=== PATIENT | female | born 1990 | race Caucasian/White ===

== ENCOUNTER 2017-02-01 10:06 | Emergency (ER) | payer BC, MEDICAID ==
[~2017-02-01] VITALS: Ht 157.5 cm; Wt 49.9 kg
[~2017-02-01 10:06] MED LIST: AMPH15TA2 PO; GABA-534 PO
[2017-02-01] MEDS ORDERED: IV NORMAL SALINE 1000 ML BAG IV ONE (10:45)
[2017-02-01] MEDS ORDERED: KETOROLAC TROMETHAMINE 15 MG INJ IV ONE (10:45)
[2017-02-01] MEDS ORDERED: KETOROLAC TROMETHAMINE 30 MG INJ ONE (10:57)
[2017-02-01 11:08] LABS: *BILIRUBIN,URIN NEGATIVE (NEGATIVE); *BLOOD, URINE Trace-intact (NEGATIVE); *CLARITY,URINE CLEAR (CLEAR); *COLOR,URINE YELLOW (YELLOW); *KETONES,URINE NEGATIVE (NEGATIVE); *PROTEIN,URINE NEGATIVE (NEGATIVE); *UROBILINOGEN,URINE 0.2 E.U./dl (NORMAL); LEUKOCYTE ESTERASE ,URINE NEGATIVE (NEGATIVE); NITRITE, URINE NEGATIVE (NEGATIVE); UGLUCOSE NEGATIVE (NEGATIVE)
[2017-02-01 11:17] LABS: BACTERIA,URINE FEW /HPF (NONE SEEN); RBC,URINE 0-3 /HPF (0-3); SQUAMOUS EPITHELIAL CELL,UR NONE SEEN /HPF (NONE SEEN); WBC,URINE 0-3 /HPF (0-3)
[2017-02-01 11:21] LABS: BASOPHILS # (AUTO) 0.1 K/uL (0.0-0.2); EOSINOPHILS # (AUTO) 0.2 K/uL (0.0-0.7); EOSINOPHILS % (AUTO) 1.7 % (0.0-7.0); HEMATOCRIT 41.6 % (37.0-47.0); HEMOGLOBIN 14.4 g/dL (12.0-16.0); LYMPHOCYTES # (AUTO) 2.7 K/uL (0.8-4.8); LYMPHOCYTES % (AUTO) 24.6 % (20.5-51.5); MEAN CORPUSCULAR HEMOGLOBIN 32.4 uug (27.0-31.0); MEAN CORPUSCULAR HGB CONC 35 g/dL (32.0-37.0); MEAN CORPUSCULAR VOLUME 93.9 fL (81.0-99.0); MONOCYTES # (AUTO) 0.7 K/uL (0.1-1.30); MONOCYTES % (AUTO) 6.5 % (0.0-11.0); NEUTROPHILS # (AUTO) 7.4 K/uL (1.8-8.9); NEUTROPHILS % (AUTO) 66.2 % (38.5-71.5); PLATELET COUNT (AUTO) 346 K/uL (150-450); RED BLOOD CELL COUNT(AUTO) 4.43 MIL/uL (4.20-5.40); RED CELL DISTRIBUTION WIDTH 12.4 % (11.5-14.5); WHITE BLOOD COUNT (AUTO) 11.1 K/uL (4.0-11.2)
[2017-02-01 11:27] LABS: CALCIUM 8.7 mg/dL (8.5-10.1); CREATININE 0.9 mg/dL (0.6-1.3); POTASSIUM 3.3 mmol/L (3.5-5.1)
[2017-02-01 11:34] LABS: ALBUMIN 3.8 g/dL (3.4-5.0); BILIRUBIN,DIRECT 0.1 mg/dL (0.0-0.2); BILIRUBIN,TOTAL 0.3 mg/dL (0.2-1.0)
[2017-02-01] MEDS ORDERED: MORPHINE SULFATE 4 MG/1 ML DISP.SYRIN IV ONE (12:00)
[2017-02-01] MEDS ORDERED: ONDANSETRON IV *ER 4 MG/2 ML VIAL IV ONE (12:00)
[2017-02-01] MEDS ORDERED: PANTOPRAZOLE SODIUM IV 80 MG in IV DEXTROSE 5% 100 ML IV ONE (12:00)
[2017-02-01] MEDS ORDERED: ONDANSETRON 4 MG/2 ML VIAL ONE (12:12)
[2017-02-01] MEDS ORDERED: MORPHINE SULFATE 4 MG/1 ML DISP.SYRIN ONE (12:12)
[2017-02-01] MEDS ORDERED: PANTOPRAZOLE SODIUM 40 MG VIAL ONE (12:13)
--- NOTE | 2017-02-01 14:36 | NUR ---
Patient discharged to home in stable conditon. Written and verbal after care instructions given. Patient verbalizes understanding of instructions. Ambulated from Er with stable gait. All belongings with patient. Patient will be driven home by her in private vehicle.
[2017-02-01 14:38] VITALS: BP 130/75
== END 2017-02-01 14:40 | disposition home or self-care (01) ==
LOC: ER 10:06
DX: R10.10 Upper abdominal pain, unspecified (principal); G47.00 Insomnia, unspecified; F41.9 Anxiety disorder, unspecified; F31.9 Bipolar disorder, unspecified
CPT/HCPCS: 36415; 74176; 76700; 80048; 80076; 81001; 83690; 84484; 84703; 85025; 96361; 96374; 96375; 99285; A4663; C9113; J1885; J2270; J2405; J7030; 70030-TC

== ENCOUNTER 2017-06-20 14:32 | Emergency (ER) | payer BC, OTHER ==
[~2017-06-20] VITALS: Ht 157.5 cm; Wt 49.9 kg
[2017-06-20 15:12] LABS: BASOPHILS % (AUTO) 0.6 % (0.0-2.0); EOSINOPHILS # (AUTO) 0.1 K/uL (0.0-0.7); HEMATOCRIT 39.2 % (37-47); HEMOGLOBIN 13.4 G/DL (12.0-16.0); LYMPHOCYTES # (AUTO) 1.8 K/UL (0.8-4.8); LYMPHOCYTES % (AUTO) 24.6 % (20.5-51.5); MEAN CORPUSCULAR HEMOGLOBIN 32.1 UUG (27.0-31.0); MEAN CORPUSCULAR HGB CONC 34 g/dL (32.0-37.0); MEAN CORPUSCULAR VOLUME 93.8 FL (81.0-99.0); MONOCYTES # (AUTO) 0.4 K/UL (0.1-1.30); NEUTROPHILS # (AUTO) 5.1 K/UL (1.8-8.9); NEUTROPHILS % (AUTO) 67.8 % (38.5-71.5); PLATELET COUNT (AUTO) 344 K/UL (150-450); RED BLOOD CELL COUNT(AUTO) 4.18 MIL/UL (4.2-5.4); WHITE BLOOD COUNT (AUTO) 7.4 K/UL (4.0-11.2)
[2017-06-20 15:14] LABS: CREATININE 0.8 mg/dL (0.6-1.3); POTASSIUM 3.7 mmol/L (3.5-5.1)
[2017-06-20 15:20] LABS: BILIRUBIN,DIRECT 0.1 mg/dL (0.0-0.2); BILIRUBIN,TOTAL 0.5 mg/dL (0.2-1.0); TOTAL PROTEIN, SERUM 7.9 g/dL (6.4-8.2)
[2017-06-20] MEDS ORDERED: ONDANSETRON ODT 4 MG TAB.RAPDIS SL ONE (16:00)
[2017-06-20 16:01] LABS: *BLOOD, URINE NEGATIVE (NEGATIVE); *CLARITY,URINE SLIGHTLY CLOUDY (CLEAR); *COLOR,URINE YELLOW (YELLOW); *KETONES,URINE 3+ (NEGATIVE); *PROTEIN,URINE 1+ (NEGATIVE); *UROBILINOGEN,URINE 0.2 E.U./dl (NORMAL); LEUKOCYTE ESTERASE ,URINE NEGATIVE (NEGATIVE); NITRITE, URINE NEGATIVE (NEGATIVE); PH,URINE 7.5 (5.0-8.0); UGLUCOSE NEGATIVE (NEGATIVE)
[2017-06-20 16:05] LABS: *URINE HCG, QUAL NEGATIVE (NEGATIVE)
[2017-06-20] MEDS ORDERED: ONDANSETRON ODT 4 MG TAB.RAPDIS ONE (16:07)
[2017-06-20 16:09] LABS: *BILIRUBIN,URIN NEGATIVE (NEGATIVE)
--- NOTE | 2017-06-20 16:15 | NUR ---
Patient discharged to home in stable conditon. Written and verbal after care instructions given. Patient verbalizes understanding of instructions. Stressed follow up with pmd or return to ER for worsening s/s.
[2017-06-20 16:18] LABS: SQUAMOUS EPITHELIAL CELL,UR MANY /HPF (NONE SEEN); WBC,URINE 0-3 /HPF (0-3)
[2017-06-20 16:19] LABS: MUCUS,URINE MANY /LPF (0-FEW); URINE AMORPHOUS PHOSPHATES MODERATE /HPF
== END 2017-06-20 16:16 | disposition home or self-care (01) ==
LOC: ER 14:32
DX: K29.70 Gastritis, unspecified, without bleeding (principal); K21.9 Gastro-esophageal reflux disease without esophagitis
CPT/HCPCS: 36415; 83690; 84703; 85025; A4663; Q0162

== ENCOUNTER 2017-07-24 13:25 | Emergency (ER) | payer BC, MEDICAID ==
[~2017-07-24] VITALS: Ht 157.5 cm; Wt 49.9 kg
[2017-07-24 14:33] LABS: BASOPHILS # (AUTO) 0.3 K/uL (0.0-8.0); BASOPHILS % (AUTO) 2.2 % (0.0-2.0); EOSINOPHILS # (AUTO) 0.2 K/uL (0.0-0.7); EOSINOPHILS % (AUTO) 1.3 % (0.0-7.0); HEMATOCRIT 38.6 % (37-47); HEMOGLOBIN 12.8 G/DL (12.0-16.0); LYMPHOCYTES # (AUTO) 1.4 K/UL (0.8-4.8); LYMPHOCYTES % (AUTO) 11.3 % (20.5-51.5); MEAN CORPUSCULAR HEMOGLOBIN 31.1 UUG (27.0-31.0); MEAN CORPUSCULAR HGB CONC 33 g/dL (32.0-37.0); MEAN CORPUSCULAR VOLUME 94.1 FL (81.0-99.0); MONOCYTES # (AUTO) 0.6 K/UL (0.1-1.30); MONOCYTES % (AUTO) 5.3 % (0.0-11.0); NEUTROPHILS # (AUTO) 9.5 K/UL (1.8-8.9); NEUTROPHILS % (AUTO) 79.9 % (38.5-71.5); PLATELET COUNT (AUTO) 268 K/UL (150-450)
[2017-07-24 14:35] LABS: *BILIRUBIN,URIN NEGATIVE (NEGATIVE); *BLOOD, URINE 3+ (NEGATIVE); *CLARITY,URINE CLOUDY (CLEAR); *COLOR,URINE YELLOW (YELLOW); *KETONES,URINE 1+ (NEGATIVE); *UROBILINOGEN,URINE 0.2 E.U./dl (NORMAL); NITRITE, URINE POSITIVE (NEGATIVE); UGLUCOSE NEGATIVE (NEGATIVE)
[2017-07-24 14:36] LABS: CREATININE 1.2 mg/dL (0.6-1.3); POTASSIUM 3.7 mmol/L (3.5-5.1)
[2017-07-24 14:38] LABS: *URINE HCG, QUAL NEGATIVE (NEGATIVE)
[2017-07-24 14:41] LABS: BILIRUBIN,TOTAL 0.4 mg/dL (0.2-1.0); TOTAL PROTEIN, SERUM 7.4 g/dL (6.4-8.2)
[2017-07-24 14:50] LABS: *PROTEIN,URINE 3+ (NEGATIVE); LEUKOCYTE ESTERASE ,URINE 2+ (NEGATIVE)
[2017-07-24 14:52] LABS: BACTERIA,URINE MANY /HPF (NONE SEEN); MUCUS,URINE MANY /LPF (0-FEW); SQUAMOUS EPITHELIAL CELL,UR MANY /HPF (NONE SEEN); WBC,URINE 80-100 /HPF (0-3)
[2017-07-24 14:55] LABS: BAND % (MANUAL) 3 % (0-10); LYMPHOCYTES % (MANUAL) 9 % (20-40); MONOCYTES % (MANUAL) 4 % (2-10); NEUTROPHILS % (MANUAL) 84 % (42-75)
[2017-07-24] MEDS ORDERED: PHENAZOPYRIDINE HCL 100 MG TABLET PO ONE (15:15)
[2017-07-24] MEDS ORDERED: HYDROCODONE/APAP 5-325MG TABLET PO ONE ×2 (15:15→17:00)
[2017-07-24] MEDS ORDERED: CEFTRIAXONE 1 G in IV DEXTROSE 5% 50 ML IV ONE (15:15)
[2017-07-24] MEDS ORDERED: IV NS 1000 ML 1,000 ML IV ONE (15:15)
[2017-07-24] MEDS ORDERED: PHENAZOPYRIDINE HCL 100 MG TABLET ONE (15:24)
[2017-07-24] MEDS ORDERED: CEFTRIAXONE 1 G VIAL ONE (15:24)
[2017-07-24] MEDS ORDERED: HYDROCODONE/APAP 5-325MG TABLET ONE ×2 (15:35→16:56)
--- NOTE | 2017-07-24 15:50 | NUR ---
Pt back from xray, states no pain relief from [place]. Dr Christine notified.
--- NOTE | 2017-07-24 16:30 | NUR ---
IV removed. Catheter intact and site benign. Pressure and 4x4 gauze applied to site. No bleeding noted.
--- NOTE | 2017-07-24 16:35 | NUR ---
Patient discharged to home in stable conditon. Written and verbal after care instructions given. Patient verbalizes understanding of instructions. Stressed follow up or return to ER for worsening s/s.
[2017-07-24 16:37] VITALS: BP 110/67
--- NOTE | 2017-07-24 16:42 | NUR ---
Pt went to restroom after ACI was given, after coming out of the restroom pt stated she wanted more pain medication before she went home. Dr. Christine was notified and pt was medicated with [place] 5-325mg 1 tab po as ordered.
== END 2017-07-24 16:38 | disposition home or self-care (01) ==
LOC: ER 13:27
DX: N39.0 Urinary tract infection, site not specified (principal); D72.829 Elevated white blood cell count, unspecified; K21.9 Gastro-esophageal reflux disease without esophagitis; F41.9 Anxiety disorder, unspecified; F31.9 Bipolar disorder, unspecified
CPT/HCPCS: 36415; 84703; 85025; A4663; J0696; J3490; J7030

== ENCOUNTER 2018-02-02 11:10 | Inpatient (IN) | payer BC ==
[2018-02-02] VITALS (8 sets, daily range): BP systolic 91–136; BP diastolic 53–82
[~2018-02-02] VITALS: Ht 157.5 cm; Wt 60.3 kg
--- NOTE | 2018-02-02 11:18 | NUR ---
PT BIB RA 88 FROM HOME S/P INTENTIALL OVER DOSE OFPOSSIBLY 20 EFFEXOR PILLS AT 9PM LAST NIGHT. PT AWAKE, AXOX4 BUT LETHARGIC AT THIS POINT.
[2018-02-02] MEDS ORDERED: VENL150C2 PO (11:27)
[2018-02-02] MEDS ORDERED: IV NORMAL SALINE 1000 ML BAG IV ONE (11:45)
[2018-02-02] MEDS ORDERED: LORAZEPAM 2 MG/1 ML VIAL ONE ×2 (11:48→12:26)
--- NOTE | 2018-02-02 11:49 | NUR ---
AT BEDSIDE TRYING TO START ANOTHER HEPLOCK FOR THE PT, WHEN THE PT STARTED SEIZING, GRAND MAL, SEIZURE PROTECTION PROVIDED. NOTIFIED.
--- NOTE | 2018-02-02 11:57 | NUR ---
PT AT BEDSIDE RIGHT NOW. PT SAID THAT THE PT SEIZED EARLEER IN THE MORNING AND THATS WHEN THE HUSBANDCALLED PARAMEDICS.
[2018-02-02 12:00] LABS: BASOPHILS # (AUTO) 0.1 K/uL (0.0-8.0); BASOPHILS % (AUTO) 0.7 % (0.0-2.0); EOSINOPHILS # (AUTO) 0.4 K/uL (0.0-0.7); EOSINOPHILS % (AUTO) 2.8 % (0.0-7.0); HEMATOCRIT 39.4 % (31.2-41.9); HEMOGLOBIN 12.6 g/dL (10.9-14.3); LYMPHOCYTES # (AUTO) 4.6 K/uL (20.0-40.0); LYMPHOCYTES % (AUTO) 29.5 % (20.5-51.5); MEAN CORPUSCULAR HEMOGLOBIN 31.9 uug (24.7-32.8); MEAN CORPUSCULAR HGB CONC 32 g/dL (32.3-35.6); MEAN CORPUSCULAR VOLUME 99.4 fL (75.5-95.3); MONOCYTES # (AUTO) 1.4 K/uL (2.0-10.0); MONOCYTES % (AUTO) 8.6 % (0.0-11.0); NEUTROPHILS # (AUTO) 9.1 K/uL (1.8-8.9); NEUTROPHILS % (AUTO) 58.4 % (38.5-71.5); PLATELET COUNT (AUTO) 307 K/uL (179-408); RED BLOOD CELL COUNT(AUTO) 3.96 MIL/uL (3.63-4.92); WHITE BLOOD COUNT (AUTO) 15.6 K/uL (3.8-11.8)
[2018-02-02] MEDS ORDERED: LORAZEPAM 2 MG/1 ML VIAL IV ONE ×2 (12:00→12:30)
[2018-02-02 12:05] LABS: CARBON DIOXIDE 20 mmol/L (21-32); CHLORIDE 107 mmol/L (98-107); CREATININE 0.9 mg/dL (0.6-1.3); GLUCOSE 87 mg/dL (74-106); POTASSIUM 3.3 mmol/L (3.5-5.1); UREA NITROGEN, BLOOD 6 mg/dL (7-18)
[2018-02-02 12:13] LABS: ACETAMINOPHEN < 2.0 ug/mL (10-30); ALANINE AMINOTRANSFERASE 20 U/L (14-59); ALKALINE PHOSPHATASE 58 U/L (50-136); ASPARTATE AMINOTRANSFERASE 17 U/L (15-37); BILIRUBIN,DIRECT < 0.1 mg/dL (0.0-0.2); BILIRUBIN,TOTAL 0.1 mg/dL (0.2-1.0); TOTAL PROTEIN, SERUM 7.1 g/dL (6.4-8.2)
[2018-02-02 12:14] LABS: ETHANOL < 3 MG/DL (0-0)
--- NOTE | 2018-02-02 12:41 | NUR ---
PT PLACED ON BEDPAN PER REQUEST.
--- NOTE | 2018-02-02 13:00 | NUR ---
SBAR report received from [facility].
[2018-02-02] MEDS ORDERED: MAGNESIUM SULFATE/D5W 100 ML IV SCH ×2 (13:15→15:00)
[2018-02-02] MEDS ORDERED: POTASSIUM CHLORIDE 20 MEQ TAB.PRT.SR PO ONE (13:15)
--- NOTE | 2018-02-02 13:18 | NUR ---
PT UNABLE TO VOID ON BEDPAN, PT SAYS THAT SHE HAS DIFFICULTY VOIDING AND HAS BEEN CHECKED MULTIPLE TIMES AND NO DIAGNOSIS WAS FOUND. PT REQUESTING TO SIT ON NEXT TO BED COMMODE.
[2018-02-02] MEDS ORDERED: MAGNESIUM SULFATE/D5W 100 ML ONE (13:34)
[2018-02-02] MEDS ORDERED: POTASSIUM CHLORIDE 20 MEQ TAB.PRT.SR ONE (13:34)
--- NOTE | 2018-02-02 13:40 | NUR ---
PT VOIDED 60 ML AND SENT TO LAB
[2018-02-02 13:51] LABS: *BILIRUBIN,URIN NEGATIVE (NEGATIVE); *BLOOD, URINE 1+ (NEGATIVE); *COLOR,URINE YELLOW (YELLOW); *KETONES,URINE NEGATIVE (NEGATIVE); *PROTEIN,URINE NEGATIVE (NEGATIVE); *URINE HCG, QUAL NEGATIVE (NEGATIVE); *UROBILINOGEN,URINE 0.2 E.U./dl (NORMAL); LEUKOCYTE ESTERASE ,URINE NEGATIVE (NEGATIVE); NITRITE, URINE NEGATIVE (NEGATIVE); PH,URINE 5.5 (5.0-8.0); UGLUCOSE NEGATIVE (NEGATIVE)
[2018-02-02 13:52] LABS: *CLARITY,URINE SLIGHTLY CLOUDY (CLEAR)
--- NOTE | 2018-02-02 13:52 | NUR ---
PT TRANSFERED TO FLOOR IN STABLE CONDITION. NO CHNGE IN PT MENTATION. PT AND SISTER AT BEDSIDE.
[2018-02-02 13:59] LABS: BACTERIA,URINE MODERATE /HPF (NONE SEEN); SQUAMOUS EPITHELIAL CELL,UR MANY /HPF (NONE SEEN); WBC,URINE 0-3 /HPF (0-3)
--- NOTE | 2018-02-02 14:00 | NUR ---
admitted to CCU 3 , 27 yr old female diagnosis of drug overdose, tachycardia, seizures. patient is lethargis but arousable. denies pain and discomfort,is tachycardic up to 130/min. tamp 98.2. call to dr morales for adm orders. condition report given to MD as well Addendum: 02/02/18 at 1444 by BARBARA KUMAR RN Amended: Links added.
[2018-02-02 14:03] LABS: *AMPHETAMINE, URINE POSITIVE (NEGATIVE); *BARBITURATE, URINE NEGATIVE (NEGATIVE); *CANNABINOID, URINE NEGATIVE (NEGATIVE); *COCCAINE, URINE NEGATIVE (NEGATIVE); *OPIATE, URINE NEGATIVE (NEGATIVE); *PHENCYCLIDINE SCREEN,URINE POSITIVE (NEGATIVE)
[2018-02-02] MEDS ORDERED: ACETAMINOPHEN 325 MG TABLET PO PRN (14:45)
[2018-02-02] MEDS ORDERED: MAGNESIUM HYDROXIDE 30 ML LIQUID UDC PO PRN (14:45)
[2018-02-02] MEDS ORDERED: LORAZEPAM 2 MG/1 ML VIAL IV PRN (14:45)
[2018-02-02] MEDS: POTASSIUM CHLORIDE 20 MEQ in IV NS 1000 ML 1,000 ML IV PRN (16:02)
[2018-02-02] MEDS: GABAPENTIN 300 MG CAPSULE PO SCH ×2 (17:00→17:31)
--- NOTE | 2018-02-02 17:30 | NUR ---
patient asked for zofran, call to dr morales. prefers to give ativan instead of zofran. ativan given instead. dinner served. ate 50%. has urgency ang frequency of urination. dr morales made aware. Addendum: 02/02/18 at 1856 by BARBARA KUMAR RN Amended: Links added.
[2018-02-02] MEDS: LORAZEPAM 2 MG/1 ML VIAL IV PRN ×2 (17:32→22:29)
--- NOTE | 2018-02-02 19:15 | NUR ---
report given to Marita Addendum: 02/02/18 at 1947 by BARBARA KUMAR RN Amended: Links added.
--- NOTE | 2018-02-02 20:00 | NUR ---
Dr Tran at bedside for eval and assessment. Updates given
[2018-02-02] MEDS: DOCUSATE SODIUM 100 MG CAPSULE PO SCH (21:43)
--- NOTE | 2018-02-02 22:30 | NUR ---
1 episode of emesis. Spoke with Dr Tran regarding patient's nausea. No new orders at this time.
[2018-02-03] VITALS (24 sets, daily range): BP systolic 96–128; BP diastolic 66–90
--- NOTE | 2018-02-03 02:00 | NUR ---
Patient requested to use diaper during night while asleep. Continue to monitor.
[2018-02-03] MEDS: LORAZEPAM 2 MG/1 ML VIAL IV PRN ×4 (05:03→22:39)
[2018-02-03 05:29] LABS: BASOPHILS % (AUTO) 0.3 % (0.0-2.0); EOSINOPHILS # (AUTO) 0.2 K/uL (0.0-0.7); EOSINOPHILS % (AUTO) 1.2 % (0.0-7.0); HEMATOCRIT 35.2 % (31.2-41.9); LYMPHOCYTES % (AUTO) 15.4 % (20.5-51.5); MEAN CORPUSCULAR HEMOGLOBIN 32.3 uug (24.7-32.8); MEAN CORPUSCULAR HGB CONC 34 g/dL (32.3-35.6); MEAN CORPUSCULAR VOLUME 94.9 fL (75.5-95.3); MONOCYTES # (AUTO) 0.9 K/uL (2.0-10.0); MONOCYTES % (AUTO) 6.7 % (0.0-11.0); NEUTROPHILS % (AUTO) 76.4 % (38.5-71.5); PLATELET COUNT (AUTO) 270 K/uL (179-408); WHITE BLOOD COUNT (AUTO) 13.1 K/uL (3.8-11.8)
[2018-02-03 05:43] LABS: BILIRUBIN,TOTAL 0.3 mg/dL (0.2-1.0); CREATININE 0.7 mg/dL (0.6-1.3); PHOSPHOROUS 2.4 mg/dL (2.5-4.9); POTASSIUM 3.3 mmol/L (3.5-5.1); TOTAL PROTEIN, SERUM 6.9 g/dL (6.4-8.2)
[2018-02-03 05:54] LABS: THYROID STIMULATING HORMONE 1.883 mIU/mL (0.358-3.740)
--- NOTE | 2018-02-03 06:00 | NUR ---
Patient refusing AM care at this time. Will defer, endorse to day shift.
[2018-02-03] MEDS: PANTOPRAZOLE SODIUM 40 MG TABLET.DR PO SCH (06:37)
--- NOTE | 2018-02-03 06:50 | NUR ---
Patient remained stable throughout night. No seizure activity noted. Sinus tach on monitor. HR at start of shift 120s now stabilizing at 105. Titrated off O2 supplementation, now room air with SpO2 and RR WNL. Complained of nausea with 1 episode of vomiting, now ceased. Good urine output through shift. Peripheral IV to R hand remains intact with IVF running as ordered. SBAR report to be given to Kiah Cooper RN
--- NOTE | 2018-02-03 07:10 | NUR ---
report received from [facility], 27 yr old female andria was admitted on 02/02/18 for drug overdose, tachycardia and seizures. patient seizure free since admission, remains tachycardic HR 110/min. patient alet and verbally communicative. is voiding frequently at small amounts. has diaper on, moves all exteremities. remains on bed rest. Addendum: 02/03/18 at 0739 by BARBARA KUMAR RN Amended: Links added.
[2018-02-03] MEDS: GABAPENTIN 300 MG CAPSULE PO SCH ×3 (09:00→17:00)
--- NOTE | 2018-02-03 09:00 | NUR ---
patient changed own diaper times 1, noticed IV left hand dislodged. IV #22 inserted via left wrist. Addendum: 02/03/18 at 0917 by BARBARA KUMAR RN Amended: Links added.
--- NOTE | 2018-02-03 10:32 | NUR ---
medicated with ativan for anxiety Addendum: 02/03/18 at 1032 by BARBARA KUMAR RN Amended: Links added.
[2018-02-03] MEDS: POTASSIUM CHLORIDE 20 MEQ in IV NS 1000 ML 1,000 ML IV PRN (12:45)
--- NOTE | 2018-02-03 14:33 | NUR ---
more anxious, verbalized need to get out of here. remains unaware of recent events. asking for family members.also asking for medication to knock her out.reoriented asmuch as possible. gets oob to use commode. voiding well.. remains unsteady on her feet. medicated with ativan Addendum: 02/03/18 at 1433 by ABRBARA KUMAR RN Amended: Links added.
[2018-02-03] MEDS ORDERED: POTASSIUM CHLORIDE 20 MEQ TAB.PRT.SR PO ONE (15:15)
[2018-02-03] MEDS ORDERED: NEUTRA PHOS PACKET PO ONE (15:45)
[2018-02-03] MEDS: DOCUSATE SODIUM 100 MG CAPSULE PO SCH ×2 (21:00→21:02)
[2018-02-04] VITALS (16 sets, daily range): BP systolic 105–140; BP diastolic 34–81
[2018-02-04] MEDS: POTASSIUM CHLORIDE 20 MEQ in IV NS 1000 ML 1,000 ML IV PRN (01:30)
[2018-02-04 04:49] LABS: BASOPHILS # (AUTO) 0.1 K/uL (0.0-8.0); BASOPHILS % (AUTO) 0.4 % (0.0-2.0); EOSINOPHILS # (AUTO) 0.4 K/uL (0.0-0.7); EOSINOPHILS % (AUTO) 2.8 % (0.0-7.0); HEMATOCRIT 36.5 % (31.2-41.9); HEMOGLOBIN 12.3 g/dL (10.9-14.3); LYMPHOCYTES # (AUTO) 2.4 K/uL (20.0-40.0); LYMPHOCYTES % (AUTO) 18.2 % (20.5-51.5); MEAN CORPUSCULAR HEMOGLOBIN 32.3 uug (24.7-32.8); MEAN CORPUSCULAR HGB CONC 34 g/dL (32.3-35.6); MEAN CORPUSCULAR VOLUME 95.3 fL (75.5-95.3); MONOCYTES # (AUTO) 0.9 K/uL (2.0-10.0); MONOCYTES % (AUTO) 7.1 % (0.0-11.0); NEUTROPHILS # (AUTO) 9.5 K/uL (1.8-8.9); NEUTROPHILS % (AUTO) 71.5 % (38.5-71.5); PLATELET COUNT (AUTO) 270 K/uL (179-408); RED BLOOD CELL COUNT(AUTO) 3.83 MIL/uL (3.63-4.92); WHITE BLOOD COUNT (AUTO) 13.3 K/uL (3.8-11.8)
[2018-02-04 05:26] LABS: BILIRUBIN,TOTAL 0.3 mg/dL (0.2-1.0); CREATININE 0.7 mg/dL (0.6-1.3); MAGNESIUM 1.9 mg/dL (1.8-2.4); PHOSPHOROUS 2.8 mg/dL (2.5-4.9); POTASSIUM 4.3 mmol/L (3.5-5.1); TOTAL PROTEIN, SERUM 6.9 g/dL (6.4-8.2)
--- NOTE | 2018-02-04 06:00 | NUR ---
Patient refusing IVF at this time. Education provided of risks/benefits, patient continues to refuse.
[2018-02-04] MEDS: PANTOPRAZOLE SODIUM 40 MG TABLET.DR PO SCH (06:23)
[2018-02-04] MEDS: LORAZEPAM 2 MG/1 ML VIAL IV PRN (06:25)
--- NOTE | 2018-02-04 06:57 | NUR ---
No significant events overnight. Patient remained stable throughout shift. Anxiety noted, PRN medications admin as ordered. Handoff report given to Nicole Fierro RN
[2018-02-04] MEDS: GABAPENTIN 300 MG CAPSULE PO SCH ×2 (08:32→14:00)
--- NOTE | 2018-02-04 09:00 | NUR ---
AMBULATED BY PT AROUND THE CCU HALLWAY, TOLERATED WELL.
--- NOTE | 2018-02-04 10:00 | NUR ---
SPOKEN WITH CASE MANAGEMENT AND ORE CRUSHER AND DISCUSS THE CONCERN.
--- NOTE | 2018-02-04 10:30 | NUR ---
SEEN AND EXAMINED BY DR NYDIA GALAN MD AND RECOMMEND TO CALL FOR A HEALTH CRISIS TEAM. CALLED AND NOTIFIED BENNIE AND WILL BE COMING BY 2PM.
--- NOTE | 2018-02-04 13:00 | NUR ---
SEEN AND EXAMINED BY [facility]. NO ORDEREDS MADE,
--- NOTE | 2018-02-04 14:00 | NUR ---
SEEN AND EXAMINED BY BENNIE, CRISIS TEAM, SAT DOWN AND TALK WITH THE PATIENT.
--- NOTE | 2018-02-04 14:30 | NUR ---
PT WROTE A NOTE THAT SHE DISCHARGE HERSELF VOLUNTARILY FROM BEING ADMITTED IN THE PSYCHE UNIT. BENNIE FROM CRISIS TEAM OKEYED THAT PT CAN GO HOME WHEN SHE IS MEDICALLY CLEAR.
--- NOTE | 2018-02-04 15:30 | NUR ---
PT WANTED TO REALLY GO HOME. NOTIFIED DR HUERTA OF PT'S INTENT TO GO HOME AND ALSO INFORMED THAT PT WAS SEEN BY DR SHENG MONDRAGON PYSCIATRIST AND THE CRISIS TEAM BENNIE.
--- NOTE | 2018-02-04 16:20 | NUR ---
PT IS BEING MEDICALLY CLEAR AND DISCHARGE ORDERED.
--- NOTE | 2018-02-04 16:45 | NUR ---
SEEN AND EXAMINED BY DR HUERTA BEFORE DISCHARGE.
--- NOTE | 2018-02-04 16:47 | NUR ---
NOTIFIED PT'S MEGAN, OF PT'S DISCHARGE. AND NOTIFIED PT'S SISTER.
--- NOTE | 2018-02-04 18:02 | NUR ---
SISTER IS IN. DISCHARGE INSTRUCTIONS GIVEN TO PT AND SISTER WITH GOOD UNDERSTANDING. IV LINE REMOVED. DISCHARGED AMBULATORY ACCOMPANIED BY HER SISTER. PT PREFERRED TO AMBULATE THAN RIDING ON WHEELCHAIR. CONDITION IS STABLE.
== END 2018-02-04 19:16 | disposition home or self-care (01) | DRG 812 ==
LOC: ER 11:10 → CCU 13:43
PROVIDERS: ADMIT Internal Medicine; ATTEND Internal Medicine
DX: T43.212A Poisoning by selective serotonin and norepinephrine reuptake inhibitors, intentional self-harm, initial encounter (principal); M62.82 Rhabdomyolysis; R56.9 Unspecified convulsions; F31.4 Bipolar disorder, current episode depressed, severe, without psychotic features; Y92.002 Bathroom of unspecified non-institutional (private) residence as the place of occurrence of the external cause; F16.10 Hallucinogen abuse, uncomplicated; F60.3 Borderline personality disorder; K21.9 Gastro-esophageal reflux disease without esophagitis; I45.10 Unspecified right bundle-branch block; F41.9 Anxiety disorder, unspecified; E87.6 Hypokalemia; D72.828 Other elevated white blood cell count; Z87.440 Personal history of urinary (tract) infections; Z79.899 Other long term (current) drug therapy
CPT/HCPCS: 36415; 71045; 80307; 83735; 84100; 84443; 84703; 85025; 87086; 93005; 97116; 97530; A4663; G0480; G0480-TC; J2060; J3475; J3480; J3490; J7030

== ENCOUNTER 2018-05-26 22:21 | Emergency (ER) | payer BC ==
[~2018-05-26] VITALS: Ht 157.5 cm; Wt 49.9 kg
[~2018-05-26 22:21] MED LIST changes: +VENL150C2 PO
--- NOTE | 2018-05-26 23:07 | NUR ---
DR SUNDAY BARFIELD MD AT BEDSIDE FOR MSE.
[2018-05-26] MEDS ORDERED: TRAMADOL HCL 50 MG TABLET PO ONE (23:15)
[2018-05-26] MEDS ORDERED: TRAMADOL HCL 50 MG TABLET ONE (23:17)
--- NOTE | 2018-05-26 23:20 | NUR ---
CALLED RADIOLOGY FOR XRAY. CONSENT OBTAINED.
--- NOTE | 2018-05-26 23:26 | NUR ---
PT TAKEN VIA WHEELCHAIR TO RADIOLOGY FOR CT. NO DISTRESS NOTED.
--- NOTE | 2018-05-26 23:38 | NUR ---
PT WALKED BACK FROM RADIOLOGY W/ MANAGEMENT TRAINER. NO ACUTE EVENTS.
--- NOTE | 2018-05-26 23:47 | NUR ---
PT PROVIDED BLANKET. PT RESTING COMFORTABLY IN BED.
[2018-05-27] MEDS ORDERED: ONDANSETRON ODT 4 MG TAB.RAPDIS SL ONE (01:00)
[2018-05-27] MEDS ORDERED: ONDANSETRON ODT 4 MG TAB.RAPDIS ONE (01:29)
--- NOTE | 2018-05-27 01:51 | NUR ---
Patient discharged to home in stable conditon. Written and verbal after care instructions given. Patient verbalizes understanding of instructions. Pt ambulated from ER w/ steady gait. Pt took all personal belongings. No distress noted.
[2018-05-27 01:52] VITALS: BP 111/86
== END 2018-05-27 01:53 | disposition home or self-care (01) ==
LOC: ER 22:23
DX: S16.1XXA Strain of muscle, fascia and tendon at neck level, initial encounter (principal); Z79.899 Other long term (current) drug therapy; X58.XXXA Exposure to other specified factors, initial encounter; Y93.89 Activity, other specified; Y92.89 Other specified places as the place of occurrence of the external cause; Y99.8 Other external cause status
CPT/HCPCS: 72050; A4663; Q0162

== ENCOUNTER 2019-03-20 23:48 | Emergency (ER) | payer BC, OTHER ==
[~2019-03-20] VITALS: Ht 157.5 cm; Wt 49.9 kg
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
[2019-03-21] MEDS ORDERED: ONDANSETRON ODT 4 MG TAB.RAPDIS SL ONE (00:30)
[2019-03-21] MEDS ORDERED: ONDANSETRON ODT 4 MG TAB.RAPDIS ONE (00:33)
--- NOTE | 2019-03-21 00:55 | NUR ---
Pt. taken off unit via wheelchair by Rad. tech. for CT head,
--- NOTE | 2019-03-21 01:07 | NUR ---
Pt. back from CT, NAD
[2019-03-21] MEDS ORDERED: HYDROCODONE/APAP 10-325 MG TABLET PO ONE (01:30)
[2019-03-21] MEDS ORDERED: HYDROCODONE/APAP 10-325 MG TABLET ONE (01:35)
--- NOTE | 2019-03-21 01:49 | NUR ---
Patient discharged to home in stable conditon. Written and verbal after care instructions given. Patient verbalizes understanding of instructions. Pt. d/c per MD order, d/c papers signed, all belongings w/ pt., ID band removed, ambulated off unit w/ steady gait, instructed not to drive, NAD
== END 2019-03-21 01:54 | disposition home or self-care (01) ==
LOC: ER 23:51
DX: S06.0X0A Concussion without loss of consciousness, initial encounter (principal); Z79.899 Other long term (current) drug therapy; Y09 Assault by unspecified means
CPT/HCPCS: 70450; 72125; A4663; Q0162

== ENCOUNTER 2019-06-21 20:59 | Emergency (ER) | payer SELFPAY ==
--- NOTE | 2019-06-21 22:00 | NUR ---
PATIENT WAS CALLED TO BE PLACED IN ROOM. WAS NOT PRESENT
--- NOTE | 2019-06-21 22:50 | NUR ---
PATIENT WAS CALLED 2ND TIME TO BE PLACED IN ROOM TO BE EVAL BY ERMD. PATIENT WAS NOT AVAILABLE
--- NOTE | 2019-06-21 23:28 | NUR ---
PATIENT WAS CALLED FOR 3RD TIME TO BE PLACED IN ROOM.PATIENT WAS NOT PRESENT. PATIENT WAS NOT TRIAGED OR SEEN BY ERMD
== END 2019-06-21 23:29 | disposition left against medical advice (07) ==
LOC: ER 21:01
DX: Z53.21 Procedure and treatment not carried out due to patient leaving prior to being seen by health care provider (principal)

== ENCOUNTER 2019-06-23 07:08 | Emergency (ER) | payer MEDICAID ==
[~2019-06-23] VITALS: Ht 157.5 cm; Wt 47.6 kg
[2019-06-23] MEDS ORDERED: DIAZ10TA4 PO (07:20)
--- NOTE | 2019-06-23 07:45 | NUR ---
LICO MONDRAGON AT BEDSIDE FOR MSE.
[2019-06-23 08:01] LABS: *BILIRUBIN,URIN NEGATIVE (NEGATIVE); *BLOOD, URINE 2+ (NEGATIVE); *CLARITY,URINE CLEAR (CLEAR); *COLOR,URINE LIGHT YELLOW (YELLOW); *KETONES,URINE NEGATIVE (NEGATIVE); *URINE HCG, QUAL NEGATIVE (NEGATIVE); *UROBILINOGEN,URINE 0.2 E.U./dl (NORMAL); LEUKOCYTE ESTERASE ,URINE NEGATIVE (NEGATIVE); NITRITE, URINE NEGATIVE (NEGATIVE); PH,URINE 5.5 (5.0-8.0); UGLUCOSE NEGATIVE (NEGATIVE)
[2019-06-23 08:07] LABS: SQUAMOUS EPITHELIAL CELL,UR FEW /HPF (NONE SEEN)
[2019-06-23 08:08] LABS: BACTERIA,URINE NONE SEEN /HPF (NONE SEEN); WBC,URINE 0-3 /HPF (0-3)
[2019-06-23 08:09] LABS: RBC,URINE 0-3 /HPF (0-3)
[2019-06-23 08:09] LABS: BASOPHILS % (AUTO) 0.5 % (0.0-2.0); EOSINOPHILS # (AUTO) 0.1 K/uL (0.0-0.7); EOSINOPHILS % (AUTO) 1.4 % (0.0-7.0); HEMATOCRIT 41.5 % (31.2-41.9); HEMOGLOBIN 14.3 g/dL (10.9-14.3); LYMPHOCYTES % (AUTO) 36.8 % (20.5-51.5); MEAN CORPUSCULAR HEMOGLOBIN 32.7 uug (24.7-32.8); MEAN CORPUSCULAR HGB CONC 35 g/dL (32.3-35.6); MEAN CORPUSCULAR VOLUME 94.8 fL (75.5-95.3); MONOCYTES # (AUTO) 0.5 K/uL (2.0-10.0); MONOCYTES % (AUTO) 6.2 % (0.0-11.0); NEUTROPHILS # (AUTO) 4.4 K/uL (1.8-8.9); NEUTROPHILS % (AUTO) 55.1 % (38.5-71.5); PLATELET COUNT (AUTO) 296 K/uL (179-408); RED BLOOD CELL COUNT(AUTO) 4.38 MIL/uL (3.63-4.92)
[2019-06-23 08:11] LABS: *AMPHETAMINE, URINE NEGATIVE (NEGATIVE); *BARBITURATE, URINE NEGATIVE (NEGATIVE); *CANNABINOID, URINE NEGATIVE (NEGATIVE); *COCCAINE, URINE NEGATIVE (NEGATIVE); *OPIATE, URINE NEGATIVE (NEGATIVE); *PHENCYCLIDINE SCREEN,URINE NEGATIVE (NEGATIVE)
[2019-06-23 08:15] LABS: CARBON DIOXIDE 28 mmol/L (21-32); CHLORIDE 104 mmol/L (98-107); CREATININE 0.9 mg/dL (0.6-1.3); GLUCOSE 92 mg/dL (74-106); POTASSIUM 3.8 mmol/L (3.5-5.1); UREA NITROGEN, BLOOD 6 mg/dL (7-18)
[2019-06-23 08:22] LABS: ETHANOL < 3 MG/DL (0-0)
[2019-06-23 08:28] LABS: ALANINE AMINOTRANSFERASE 36 U/L (14-59); ALKALINE PHOSPHATASE 73 U/L (50-136); ASPARTATE AMINOTRANSFERASE 26 U/L (15-37); BILIRUBIN,DIRECT 0.1 mg/dL (0.0-0.2); BILIRUBIN,TOTAL 0.3 mg/dL (0.2-1.0); TOTAL PROTEIN, SERUM 7.6 g/dL (6.4-8.2)
--- NOTE | 2019-06-23 08:34 | NUR ---
BENNIE LADD, CRISIS EMERGING TECHNOLOGIES DIRECTOR, CALLED FOR PSYCH EVAL. ETA 1 HOUR.
[2019-06-23 08:35] LABS: ACETAMINOPHEN < 2.0 ug/mL (10-30)
[2019-06-23] MEDS ORDERED: HYDROCODONE/APAP 5-325MG TABLET ONE (08:41)
[2019-06-23] MEDS ORDERED: HYDROCODONE/APAP 5-325MG TABLET PO ONE (08:45)
--- NOTE | 2019-06-23 09:50 | NUR ---
BENNIE LADD, CRISIS WOMEN'S SWIM COACH, IN ER FOR PT EVAL.
[2019-06-23] MEDS ORDERED: SUMATRIPTAN SUCCINATE 50 MG TABLET PO ONE (11:15)
[2019-06-23] MEDS ORDERED: SUMATRIPTAN SUCCINATE 50 MG TABLET ONE (11:16)
--- NOTE | 2019-06-23 12:07 | NUR ---
CALLED [facility]ONO GERARDO, SPOKE W/ HAILEY. PT'S ADMISSION STATUS IS STILL PENDING.
--- NOTE | 2019-06-23 15:04 | NUR ---
SPOKE WITH HAILEY FROM [facility]. PT HAS BEEN DECLINED FOR VOLUNTARY ADMISSION.
[2019-06-23 15:27] VITALS: BP 116/72
--- NOTE | 2019-06-23 15:27 | NUR ---
Patient discharged to home in stable conditon. Written and verbal after care instructions given. Patient verbalizes understanding of instructions. ALL BELONGINGS W/ PT. PT SELF-AMBULATED W/O DIFFICULTY.
== END 2019-06-23 15:28 | disposition home or self-care (01) ==
LOC: ER 07:08
DX: F32.9 Major depressive disorder, single episode, unspecified (principal); R51 Headache; R21 Rash and other nonspecific skin eruption; F41.9 Anxiety disorder, unspecified; Z79.899 Other long term (current) drug therapy
CPT/HCPCS: 36415; 80048; 80076; 80307; 81000; 81001; 84703; 85025; 99284; G0480 ×2; G0481; A4663

== ENCOUNTER 2019-10-28 18:13 | Emergency (ER) | payer MEDICAID ==
[~2019-10-28] VITALS: Ht 157.5 cm; Wt 49.9 kg
[~2019-10-28 18:13] MED LIST changes: +DIAZ10TA4 PO; -GABA-534 PO; -VENL150C2 PO
[2019-10-28] MEDS ORDERED: CEPH-570 PO (18:23)
[2019-10-28] MEDS ORDERED: ONDANSETRON 4 MG/2 ML VIAL IV ONE ×2 (19:00→21:00)
[2019-10-28] MEDS ORDERED: KETOROLAC TROMETHAMINE 15 MG INJ IVP ONE (19:00)
[2019-10-28] MEDS ORDERED: MORPHINE SULFATE 2 MG/1 ML DISP.SYRIN IV ONE (19:00)
[2019-10-28] MEDS ORDERED: IV NORMAL SALINE 1000 ML BAG IV ONE (19:00)
--- NOTE | 2019-10-28 19:07 | NUR ---
Assumed care of patient. No acute distress noted. VSS
[2019-10-28 19:08] LABS: *BILIRUBIN,URIN NEGATIVE (NEGATIVE); *CLARITY,URINE CLEAR (CLEAR); *COLOR,URINE YELLOW (YELLOW); *KETONES,URINE NEGATIVE (NEGATIVE); *UROBILINOGEN,URINE 0.2 E.U./dl (NORMAL); LEUKOCYTE ESTERASE ,URINE NEGATIVE (NEGATIVE); NITRITE, URINE NEGATIVE (NEGATIVE); UGLUCOSE NEGATIVE (NEGATIVE)
[2019-10-28 19:09] LABS: *BLOOD, URINE TRACE (NEGATIVE)
[2019-10-28] MEDS ORDERED: MORPHINE SULFATE 4 MG/1 ML DISP.SYRIN ONE (19:09)
[2019-10-28] MEDS ORDERED: KETOROLAC TROMETHAMINE 30 MG INJ ONE (19:09)
[2019-10-28] MEDS ORDERED: ONDANSETRON 4 MG/2 ML VIAL ONE ×2 (19:09→20:53)
[2019-10-28 19:10] LABS: *URINE HCG, QUAL NEGATIVE (NEGATIVE)
[2019-10-28 19:20] LABS: BACTERIA,URINE R /HPF (NONE SEEN); SQUAMOUS EPITHELIAL CELL,UR MANY /HPF (NONE SEEN); WBC,URINE 0-3 /HPF (0-3)
[2019-10-28 19:23] LABS: BASOPHILS # (AUTO) 0.1 K/uL (0.0-8.0); BASOPHILS % (AUTO) 0.5 % (0.0-2.0); EOSINOPHILS # (AUTO) 0.1 K/uL (0.0-0.7); EOSINOPHILS % (AUTO) 0.4 % (0.0-7.0); HEMATOCRIT 37.5 % (31.2-41.9); HEMOGLOBIN 12.6 g/dL (10.9-14.3); LYMPHOCYTES # (AUTO) 2.1 K/uL (20.0-40.0); LYMPHOCYTES % (AUTO) 16.4 % (20.5-51.5); MEAN CORPUSCULAR HEMOGLOBIN 33.2 uug (24.7-32.8); MEAN CORPUSCULAR HGB CONC 34 g/dL (32.3-35.6); MEAN CORPUSCULAR VOLUME 98.9 fL (75.5-95.3); MONOCYTES # (AUTO) 1.9 K/uL (2.0-10.0); MONOCYTES % (AUTO) 14.3 % (0.0-11.0); NEUTROPHILS # (AUTO) 8.9 K/uL (1.8-8.9); NEUTROPHILS % (AUTO) 68.4 % (38.5-71.5); PLATELET COUNT (AUTO) 248 K/uL (179-408); RED BLOOD CELL COUNT(AUTO) 3.79 MIL/uL (3.63-4.92)
--- NOTE | 2019-10-28 19:24 | NUR ---
Patient taken to CT at this time.
[2019-10-28 19:34] LABS: BILIRUBIN,DIRECT 0.1 mg/dL (0.0-0.2); BILIRUBIN,TOTAL 0.3 mg/dL (0.2-1.0); CREATININE 0.7 mg/dL (0.6-1.3); POTASSIUM 3.6 mmol/L (3.5-5.1); TOTAL PROTEIN, SERUM 7.1 g/dL (6.4-8.2)
[2019-10-28] MEDS ORDERED: CEFEPIME HCL 1 G VIAL ONE (20:14)
[2019-10-28] MEDS ORDERED: CEFEPIME HCL 1 G in IV DEXTROSE 5% 50 ML IV ONE (20:15)
--- NOTE | 2019-10-28 20:18 | NUR ---
Phlebotomy at bedside. patient in bed, no acute distress noted. VSS
--- NOTE | 2019-10-28 20:58 | NUR ---
Patient discharged to home in stable conditon. Written and verbal after care instructions given. Patient verbalizes understanding of instructions. Ambulated from ER with stable gait. All belongings with patient Peripheral IV removed prior to d/c.
[2019-10-28 20:59] VITALS: BP 128/77
--- NOTE | 2019-11-03 19:08 | NUR ---
Ceftriaxone complete @ 2049 on 10/28/19
== END 2019-10-28 20:59 | disposition home or self-care (01) ==
LOC: ER 18:15
DX: N10 Acute pyelonephritis (principal); R11.10 Vomiting, unspecified; F32.9 Major depressive disorder, single episode, unspecified; F41.9 Anxiety disorder, unspecified; Z79.899 Other long term (current) drug therapy
CPT/HCPCS: 36415; 74176; 80048; 80076; 81000; 81001; 83690; 84703; 85025; 87040 ×2; 87086; 96361; 96365; 96375; 96376; 99284; J0692; J1885; J2270; J2405 ×2; A4663; J7030

== ENCOUNTER 2020-01-26 23:29 | Emergency (ER) | payer MEDICAID ==
[~2020-01-26] VITALS: Ht 157.5 cm; Wt 54.4 kg
--- NOTE | 2020-01-26 23:49 | NUR ---
PT AOX3 ABLE TO SPEAK CLEAR AND COMPLETE SENTENCES AMBULATORY W/ STABLE GAIT RA PT C/O GENERALIZED MUSCLE SPASMS AND INCREASING NAUSEA SINCE TAKING TOPAMAX AND EFFEXOR PRESCRIBED AT 1800 TODAY DENIES FEVERS/CHILLS/SOB/VOMITING/DIARRHEA DENIES TRAUMA NOR SURGERY TO THE SITE MONITORED ACCORDINGLY SIDERAILSX2 UP BED AT LOWEST POSITION
[2020-01-27 00:27] LABS: *URINE HCG, QUAL NEGATIVE (NEGATIVE)
[2020-01-27 00:35] LABS: *AMPHETAMINE, URINE NEGATIVE (NEGATIVE); *BARBITURATE, URINE NEGATIVE (NEGATIVE); *CANNABINOID, URINE NEGATIVE (NEGATIVE); *COCCAINE, URINE POSITIVE (NEGATIVE); *OPIATE, URINE NEGATIVE (NEGATIVE); *PHENCYCLIDINE SCREEN,URINE NEGATIVE (NEGATIVE)
[2020-01-27] MEDS ORDERED: ONDANSETRON ODT 4 MG TAB.RAPDIS ONE (00:36)
[2020-01-27] MEDS ORDERED: LORAZEPAM 2 MG/1 ML VIAL ONE (00:37)
[2020-01-27 00:40] LABS: CARBON DIOXIDE 25 mmol/L (21-32); CHLORIDE 99 mmol/L (98-107); CREATININE 0.8 mg/dL (0.6-1.3); GLUCOSE 96 mg/dL (74-106); UREA NITROGEN, BLOOD 7 mg/dL (7-18)
[2020-01-27 00:45] LABS: BASOPHILS # (AUTO) 0.1 K/uL (0.0-8.0); BASOPHILS % (AUTO) 0.8 % (0.0-2.0); EOSINOPHILS # (AUTO) 0.2 K/uL (0.0-0.7); EOSINOPHILS % (AUTO) 2.1 % (0.0-7.0); HEMATOCRIT 40.3 % (31.2-41.9); LYMPHOCYTES # (AUTO) 2.8 K/uL (20.0-40.0); LYMPHOCYTES % (AUTO) 29.8 % (20.5-51.5); MEAN CORPUSCULAR HEMOGLOBIN 32.9 uug (24.7-32.8); MEAN CORPUSCULAR HGB CONC 35 g/dL (32.3-35.6); MEAN CORPUSCULAR VOLUME 94.8 fL (75.5-95.3); MONOCYTES # (AUTO) 0.5 K/uL (2.0-10.0); MONOCYTES % (AUTO) 5.9 % (0.0-11.0); NEUTROPHILS # (AUTO) 5.7 K/uL (1.8-8.9); NEUTROPHILS % (AUTO) 61.4 % (38.5-71.5); PLATELET COUNT (AUTO) 408 K/uL (179-408); RED BLOOD CELL COUNT(AUTO) 4.25 MIL/uL (3.63-4.92); WHITE BLOOD COUNT (AUTO) 9.2 K/uL (3.8-11.8)
[2020-01-27] MEDS ORDERED: ONDANSETRON ODT 4 MG TAB.RAPDIS SL ONE (00:45)
[2020-01-27] MEDS ORDERED: LORAZEPAM 2 MG/1 ML VIAL IM ONE (00:45)
[2020-01-27 00:54] LABS: THYROID STIMULATING HORMONE 1.486 mIU/mL (0.358-3.740)
[2020-01-27 00:55] LABS: ALANINE AMINOTRANSFERASE 18 U/L (14-59); ALKALINE PHOSPHATASE 61 U/L (50-136); ASPARTATE AMINOTRANSFERASE 16 U/L (15-37); BILIRUBIN,TOTAL 0.3 mg/dL (0.2-1.0); CREATINE KINASE, TOTAL 97 U/L (26-192); TOTAL PROTEIN, SERUM 7.3 g/dL (6.4-8.2)
[2020-01-27 01:00] LABS: ACETAMINOPHEN < 2.0 ug/mL (10-30); BILIRUBIN,DIRECT 0.1 mg/dL (0.0-0.2)
--- NOTE | 2020-01-27 01:12 | NUR ---
PT STATES NO DIFFERENCE/ IMPROVEMENT OF SYMPTOMS
--- NOTE | 2020-01-27 01:58 | NUR ---
ERMD AT BEDSIDE FOR UPDATE PT IS MORE CALM MONITORED ACCORDINGLY BED AT LOWEST POSITION SIDERAILSX2 UP
--- NOTE | 2020-01-27 02:06 | NUR ---
Patient discharged to home in stable conditon. Written and verbal after care instructions given. Patient verbalizes understanding of instructions. AMBULATORY W/ STABLE GAIT ALL BELONGINGS W/ PT
--- NOTE | 2020-01-27 02:06 | NUR ---
MAME WILL BRING HER HOME
[2020-01-27 02:08] LABS: ETHANOL < 3 MG/DL (0-0)
[2020-01-27 02:09] VITALS: BP 115/79
== END 2020-01-27 02:09 | disposition home or self-care (01) ==
LOC: ER 23:32
DX: T42.6X5A Adverse effect of other antiepileptic and sedative-hypnotic drugs, initial encounter (principal); F41.9 Anxiety disorder, unspecified; F32.9 Major depressive disorder, single episode, unspecified; Z60.2 Problems related to living alone; Z79.899 Other long term (current) drug therapy; Y92.89 Other specified places as the place of occurrence of the external cause
CPT/HCPCS: 36415; 80048; 80076; 80307; 82550; 84443; 84703; 85025; 96372; 99283; G0480 ×2; G0481; J2060; A4663; Q0162

== ENCOUNTER 2020-04-25 16:43 | Emergency (ER) | payer MEDICAID ==
[~2020-04-25] VITALS: Ht 157.5 cm; Wt 54.4 kg
[~2020-04-25 16:43] MED LIST changes: +CEPH-570 PO
[2020-04-25] MEDS ORDERED: HYDROCODONE/APAP 5-325MG TABLET PO ONE (17:15)
[2020-04-25] MEDS ORDERED: SUMATRIPTAN SUCCINATE 6 MG/0.5 ML VIAL SQ ONE ×2 (17:15→17:22)
[2020-04-25] MEDS ORDERED: HYDROCODONE/APAP 5-325MG TABLET ONE (17:22)
[2020-04-25] MEDS ORDERED: ONDANSETRON ODT 4 MG TAB.RAPDIS ONE (17:28)
[2020-04-25] MEDS ORDERED: ONDANSETRON ODT 4 MG TAB.RAPDIS SL ONE (17:30)
--- NOTE | 2020-04-25 17:39 | NUR ---
PT WAS EVALUATED BY DR STROUD. PT WAS D/C'D TO HOME. D/C INSTRUCTIONS GIVEN TO THE PT. PT DENIES PAIN T THIS TIME, NO N/V, NO SOB. GAIT IS STABLE.
[2020-04-25 17:40] VITALS: BP 126/68
== END 2020-04-25 17:42 | disposition home or self-care (01) ==
LOC: ER 16:46
DX: G43.909 Migraine, unspecified, not intractable, without status migrainosus (principal); F32.9 Major depressive disorder, single episode, unspecified; F41.9 Anxiety disorder, unspecified; Z79.899 Other long term (current) drug therapy
CPT/HCPCS: 96372; 99283; J3030; A4663; Q0162

== ENCOUNTER 2021-01-09 21:30 | Emergency (ER) | payer MEDICAID ==
[~2021-01-09] VITALS: Ht 157.5 cm; Wt 75.9 kg
[2021-01-09] MEDS ORDERED: ONDANSETRON 4 MG/2 ML VIAL IV ONE (22:00)
[2021-01-09] MEDS ORDERED: IV NORMAL SALINE 1000 ML BAG IV ONE (22:00)
[2021-01-09 22:19] LABS: *BILIRUBIN,URIN 1+ (NEGATIVE); *BLOOD, URINE NEGATIVE (NEGATIVE); *CLARITY,URINE SLIGHTLY CLOUDY (CLEAR); *COLOR,URINE YELLOW (YELLOW); *KETONES,URINE 2+ (NEGATIVE); LEUKOCYTE ESTERASE ,URINE NEGATIVE (NEGATIVE); NITRITE, URINE NEGATIVE (NEGATIVE); UGLUCOSE NEGATIVE (NEGATIVE)
[2021-01-09 22:21] LABS: *URINE HCG, QUAL NEGATIVE (NEGATIVE)
[2021-01-09] MEDS ORDERED: ONDANSETRON 4 MG/2 ML VIAL ONE (23:01)
[2021-01-09 23:06] LABS: BASOPHILS % (AUTO) 0.4 % (0.0-2.0); EOSINOPHILS % (AUTO) 0.1 % (0.0-7.0); HEMATOCRIT 40.5 % (31.2-41.9); HEMOGLOBIN 13.8 g/dL (10.9-14.3); LYMPHOCYTES # (AUTO) 1.6 K/uL (20.0-40.0); LYMPHOCYTES % (AUTO) 18.9 % (20.5-51.5); MEAN CORPUSCULAR HEMOGLOBIN 31.9 uug (24.7-32.8); MEAN CORPUSCULAR HGB CONC 34 g/dL (32.3-35.6); MONOCYTES % (AUTO) 11.3 % (0.0-11.0); NEUTROPHILS # (AUTO) 5.9 K/uL (1.8-8.9); NEUTROPHILS % (AUTO) 69.3 % (38.5-71.5); PLATELET COUNT (AUTO) 413 K/uL (179-408); RED BLOOD CELL COUNT(AUTO) 4.31 MIL/uL (3.63-4.92); WHITE BLOOD COUNT (AUTO) 8.5 K/uL (3.8-11.8)
[2021-01-09 23:06] LABS: RBC,URINE 0-3 /HPF (0-3); SQUAMOUS EPITHELIAL CELL,UR FEW /HPF (NONE SEEN); WBC,URINE 0-3 /HPF (0-3)
[2021-01-09 23:07] LABS: CREATININE 0.8 mg/dL (0.6-1.3); POTASSIUM 4.8 mmol/L (3.5-5.1)
[2021-01-09 23:13] LABS: BILIRUBIN,DIRECT 0.1 mg/dL (0.0-0.2); BILIRUBIN,TOTAL 0.4 mg/dL (0.2-1.0); TOTAL PROTEIN, SERUM 8.2 g/dL (6.4-8.2)
[2021-01-10] VITALS: BP 122/71
== END 2021-01-10 00:01 | disposition home or self-care (01) ==
LOC: ER 21:32
DX: B34.9 Viral infection, unspecified (principal); Z20.822 Contact with and (suspected) exposure to COVID-19; F41.9 Anxiety disorder, unspecified; F32.9 Major depressive disorder, single episode, unspecified; Z79.899 Other long term (current) drug therapy; Z87.820 Personal history of traumatic brain injury
CPT/HCPCS: 36415; 71045; 80048; 80076; 81001; 83690; 84703; 85025; 87426; 96361; 96374; 99284; J2405; A4663; J7030

== ENCOUNTER 2022-04-29 16:58 | Emergency (ER) | payer MEDICAID ==
[~2022-04-29] VITALS: Ht 157.5 cm; Wt 68.0 kg
[2022-04-29] MEDS ORDERED: KETOROLAC TROMETHAMINE 15 MG INJ IM ONE (19:00)
[2022-04-29] MEDS ORDERED: IBUP-1955 PO (19:03)
[2022-04-29] MEDS ORDERED: KETOROLAC TROMETHAMINE 15 MG INJ ONE (19:42)
--- NOTE | 2022-04-29 20:24 | NUR ---
Patient discharged to home in stable condition. Written and verbal after care instructions given. Patient verbalizes understanding of instructions. Stressed follow up or return to ER for worsening s/s.
[2022-04-29 20:25] VITALS: BP 116/72
== END 2022-04-29 20:26 | disposition home or self-care (01) ==
LOC: ER 17:00
DX: S93.402A Sprain of unspecified ligament of left ankle, initial encounter (principal); S93.401A Sprain of unspecified ligament of right ankle, initial encounter; X58.XXXA Exposure to other specified factors, initial encounter; Y92.89 Other specified places as the place of occurrence of the external cause; F41.9 Anxiety disorder, unspecified; Z79.899 Other long term (current) drug therapy
CPT/HCPCS: 73610 ×2; 96372; 99284; J1885; A4663

== ENCOUNTER 2022-12-28 16:45 | Emergency (ER) | payer MEDICAID ==
[~2022-12-28] VITALS: Ht 157.5 cm; Wt 59.0 kg
[~2022-12-28 16:45] MED LIST changes: +IBUP-1955 PO
--- NOTE | 2022-12-28 17:20 | NUR ---
Dr. Mcdonnell at bedside. MSE in progress.
[2022-12-28] MEDS ORDERED: ACETAMINOPHEN ES 500 MG TABLET PO ONE (17:45)
[2022-12-28] MEDS ORDERED: KETOROLAC TROMETHAMINE 15 MG INJ IVP ONE (17:45)
[2022-12-28] MEDS ORDERED: IV NORMAL SALINE 1000 ML BAG IV ONE (17:45)
[2022-12-28] MEDS ORDERED: ONDANSETRON 4 MG/2 ML VIAL IV ONE (17:45)
[2022-12-28] MEDS ORDERED: ONDANSETRON 4 MG/2 ML VIAL ONE (17:54)
[2022-12-28] MEDS ORDERED: KETOROLAC TROMETHAMINE 15 MG INJ ONE (17:54)
[2022-12-28] MEDS ORDERED: ACETAMINOPHEN ES 500 MG TABLET ONE (17:54)
[2022-12-28 18:06] LABS: HEMATOCRIT 41.4 % (31.2-41.9); MEAN CORPUSCULAR HEMOGLOBIN 33.2 uug (24.7-32.8); MEAN CORPUSCULAR VOLUME 97.5 fL (75.5-95.3); PLATELET COUNT (AUTO) 323 K/uL (179-408)
[2022-12-28 18:16] LABS: BILIRUBIN,DIRECT 0.1 mg/dL (0.0-0.2); BILIRUBIN,TOTAL 0.4 mg/dL (0.2-1.0); POTASSIUM 3.4 mmol/L (3.5-5.1); TOTAL PROTEIN, SERUM 7.5 g/dL (6.4-8.2)
--- NOTE | 2022-12-28 18:55 | NUR ---
Urine sent to the lab.
[2022-12-28 19:34] LABS: *BLOOD, URINE 2+ (NEGATIVE); *CLARITY,URINE CLEAR (CLEAR); *COLOR,URINE YELLOW (YELLOW); *KETONES,URINE 1+ (NEGATIVE); *UROBILINOGEN,URINE 0.2 E.U./dl (NORMAL); LEUKOCYTE ESTERASE ,URINE NEGATIVE (NEGATIVE); NITRITE, URINE NEGATIVE (NEGATIVE); UGLUCOSE NEGATIVE (NEGATIVE)
[2022-12-28 19:37] LABS: *BILIRUBIN,URIN 1+ (NEGATIVE); *URINE HCG, QUAL NEG (NEGATIVE)
[2022-12-28] MEDS ORDERED: IOHEXOL 300MG/ML 100 ML INFUS..BTL ONE (20:05)
[2022-12-28] MEDS ORDERED: IV NORMAL SALINE 250 ML IV ONE (20:05)
[2022-12-28] MEDS ORDERED: SWABABLE VALVE TRANSFER SET EA MC ONE (20:05)
--- NOTE | 2022-12-28 21:13 | NUR ---
Huma stover in [facility] - 12/28/22 at 2116 by KESHA Patient informed he will be getting a paracentesis, continues to rest without c/o at this time.
[2022-12-28] MEDS ORDERED: OXYCODONE/APAP 5-325 MG TABLET PO ONE (22:00)
[2022-12-28] MEDS ORDERED: OXYCODONE/APAP 5-325 MG TABLET ONE (22:07)
[2022-12-28 22:25] LABS: BACTERIA,URINE MODERATE /HPF (NONE SEEN); CALCIUM OXALATE CRYSTALS,UR RARE /HPF (NONE SEEN); RBC,URINE 0-3 /HPF (0-3); SQUAMOUS EPITHELIAL CELL,UR MODERATE /HPF (NONE SEEN)
[2022-12-28] MEDS ORDERED: HYDR-3972 PO (22:31)
--- NOTE | 2022-12-28 22:42 | NUR ---
Patient is to be discharged home but received percocet at 2224 for c/o pain. At this time patient is instructed to call for a lyft or [place] or to wait four hours until it is safe to drive. Patient verbalized understanding, will leave ED via [place].
[2022-12-28 22:58] VITALS: BP 121/86
== END 2022-12-28 22:45 | disposition home or self-care (01) ==
LOC: ER 16:45
DX: G89.29 Other chronic pain (principal); E87.6 Hypokalemia; Z87.440 Personal history of urinary (tract) infections; R00.0 Tachycardia, unspecified; F41.9 Anxiety disorder, unspecified; Z79.899 Other long term (current) drug therapy; Z86.19 Personal history of other infectious and parasitic diseases; R10.813 Right lower quadrant abdominal tenderness
CPT/HCPCS: 99285; 74177; 96374; 96361; 96375; 80076; 80048; 81001; 82607; 84703; 83690; 85025; 85730; 36415; 87040; J1885; J2405; Q9967; J7040; A4663; A9150

== ENCOUNTER 2023-07-18 12:58 | Emergency (ER) | payer MEDICAID ==
[~2023-07-18] VITALS: Ht 157.5 cm; Wt 59.0 kg
[~2023-07-18 12:58] MED LIST changes: +HYDR-3972 PO
[2023-07-18 13:01] VITALS: O2SAT 99
[2023-07-18] MEDS ORDERED: OXYC5TAB3 PO (14:58)
== END 2023-07-18 16:00 | disposition home or self-care (01) ==
LOC: ER 12:58
DX: S82.002A Unspecified fracture of left patella, initial encounter for closed fracture (principal); S96.911A Strain of unspecified muscle and tendon at ankle and foot level, right foot, initial encounter; G43.909 Migraine, unspecified, not intractable, without status migrainosus; Z79.1 Long term (current) use of non-steroidal anti-inflammatories (NSAID); Z79.899 Other long term (current) drug therapy; W18.39XA Other fall on same level, initial encounter; Y93.89 Activity, other specified; Y92.89 Other specified places as the place of occurrence of the external cause; Y99.8 Other external cause status
CPT/HCPCS: 73610; A4663

== ENCOUNTER 2023-09-21 21:50 | Emergency (ER) | payer MEDICAID ==
[~2023-09-21] VITALS: Ht 157.5 cm; Wt 59.0 kg
[~2023-09-21 21:50] MED LIST changes: +OXYC5TAB3 PO
[2023-09-21] MEDS ORDERED: HYDROCODONE/APAP 10-325 MG TABLET ONE (22:21)
[2023-09-21] MEDS ORDERED: DIAZEPAM 5 MG TABLET ONE (22:21)
[2023-09-21] MEDS ORDERED: ONDANSETRON ODT 4 MG TAB.RAPDIS ONE (22:21)
[2023-09-21] MEDS ORDERED: ONDANSETRON ODT 4 MG TAB.RAPDIS SL ONE (22:30)
[2023-09-21] MEDS ORDERED: DIAZEPAM 2 MG TABLET PO ONE (22:30)
[2023-09-21] MEDS ORDERED: HYDROCODONE/APAP 10-325 MG TABLET PO ONE (22:30)
[2023-09-21] MEDS ORDERED: ONDA4TAB5 PO (22:39)
[2023-09-21] MEDS ORDERED: HYDR-3980 PO (22:39)
[2023-09-21] MEDS ORDERED: DIAZ10TA4 PO (22:39)
[2023-09-21 23:14] VITALS: BP 106/69; O2SAT 97
== END 2023-09-21 23:15 | disposition home or self-care (01) ==
LOC: ER 21:51
DX: S82.002A Unspecified fracture of left patella, initial encounter for closed fracture (principal); S13.9XXA Sprain of joints and ligaments of unspecified parts of neck, initial encounter; G43.909 Migraine, unspecified, not intractable, without status migrainosus; M25.562 Pain in left knee; M25.561 Pain in right knee; M25.572 Pain in left ankle and joints of left foot; M25.571 Pain in right ankle and joints of right foot; M79.672 Pain in left foot; M79.671 Pain in right foot; Z79.1 Long term (current) use of non-steroidal anti-inflammatories (NSAID); Z79.899 Other long term (current) drug therapy; V43.52XA Car driver injured in collision with other type car in traffic accident, initial encounter; Y93.89 Activity, other specified; Y92.410 Unspecified street and highway as the place of occurrence of the external cause; Y99.8 Other external cause status
CPT/HCPCS: 73610; 73630; A4606; A4663; Q0162

== ENCOUNTER 2024-05-30 01:58 | Emergency (ER) | payer MEDICAID ==
[~2024-05-30] VITALS: Ht 157.5 cm; Wt 63.5 kg
[~2024-05-30 01:58] MED LIST changes: +DIAZ5TAB4 PO; +HYDR-3980 PO; +ONDA4TAB5 PO
[2024-05-30] MEDS ORDERED: KETOROLAC TROMETHAMINE 30 MG INJ ONE (02:23)
[2024-05-30] MEDS: KETOROLAC TROMETHAMINE 30 MG INJ IM ONE (02:36)
[2024-05-30] MEDS ORDERED: NAPR-1009 PO (02:39)
[2024-05-30 02:55] VITALS: BP 113/77; TEMP 98.1; O2SAT 98
== END 2024-05-30 02:50 | disposition home or self-care (01) ==
LOC: ER 01:59
DX: M25.861 Other specified joint disorders, right knee (principal); M25.562 Pain in left knee; M25.561 Pain in right knee; Z87.81 Personal history of (healed) traumatic fracture; G43.909 Migraine, unspecified, not intractable, without status migrainosus; F32.A Depression, unspecified; F41.9 Anxiety disorder, unspecified; Z79.899 Other long term (current) drug therapy; Z79.891 Long term (current) use of opiate analgesic; Z79.1 Long term (current) use of non-steroidal anti-inflammatories (NSAID); Z60.2 Problems related to living alone
CPT/HCPCS: 99283; 96372; J1885; A4606; A4663

== ENCOUNTER 2025-02-22 22:39 | Emergency (ER) | payer MEDICAID ==
[~2025-02-22] VITALS: Ht 160 cm; Wt 63.1 kg
[~2025-02-22 22:39] MED LIST changes: +NAPR-1009 PO
[2025-02-23 02:58] LABS: BASOPHILS % (AUTO) 0.7 % (0.0-2.0); EOSINOPHILS # (AUTO) 0.1 K/uL (0.0-0.7); EOSINOPHILS % (AUTO) 1.2 % (0.0-7.0); HEMATOCRIT 44.1 % (31.2-41.9); HEMOGLOBIN 14.9 g/dL (10.9-14.3); LYMPHOCYTES # (AUTO) 2.7 K/uL (0.8-4.8); LYMPHOCYTES % (AUTO) 57.8 % (20.5-51.5); MEAN CORPUSCULAR HEMOGLOBIN 32.6 uug (24.7-32.8); MEAN CORPUSCULAR HGB CONC 34 g/dL (32.3-35.6); MEAN CORPUSCULAR VOLUME 96.7 fL (75.5-95.3); MONOCYTES # (AUTO) 0.5 K/uL (0.1-1.30); NEUTROPHILS # (AUTO) 1.4 K/uL (1.8-8.9); NEUTROPHILS % (AUTO) 29.3 % (38.5-71.5); PLATELET COUNT (AUTO) 274 K/uL (179-408); RED BLOOD CELL COUNT(AUTO) 4.56 MIL/uL (3.63-4.92); RED CELL DISTRIBUTION WIDTH 12.4 % (12.3-17.7); WHITE BLOOD COUNT (AUTO) 4.6 K/uL (3.8-11.8)
[2025-02-23 03:02] LABS: DIFFERENTIAL COMMENT 1
[2025-02-23 03:03] LABS: *BILIRUBIN,URIN NEGATIVE (NEGATIVE); *BLOOD, URINE NEGATIVE (NEGATIVE); *CLARITY,URINE CLEAR (CLEAR); *COLOR,URINE YELLOW (YELLOW); *KETONES,URINE TRACE (NEGATIVE); *PROTEIN,URINE 1+ (NEGATIVE); LEUKOCYTE ESTERASE ,URINE NEGATIVE (NEGATIVE); NITRITE, URINE NEGATIVE (NEGATIVE); PH,URINE 6.5 (5.0-8.0); UGLUCOSE NEGATIVE (NEGATIVE)
[2025-02-23 03:06] LABS: *URINE HCG, QUAL NEGATIVE (NEGATIVE)
[2025-02-23] MEDS ORDERED: ACETAMINOPHEN 325 MG TABLET ONE (03:08)
[2025-02-23] MEDS ORDERED: DEXAMETHASONE SOD PHOSPHATE 10 MG INJ ONE (03:08)
[2025-02-23] MEDS ORDERED: diphenhydrAMINE 50 MG/1 ML VIAL ONE (03:09)
[2025-02-23] MEDS ORDERED: KETOROLAC TROMETHAMINE 15 MG INJ ONE (03:09)
[2025-02-23] MEDS ORDERED: METOCLOPRAMIDE HCL 10 MG/2 ML VIAL ONE (03:09)
[2025-02-23 03:18] LABS: CALCIUM 8.9 mg/dL (8.5-10.1); CREATININE 0.8 mg/dL (0.6-1.3); POTASSIUM 3.6 mmol/L (3.5-5.1)
[2025-02-23] MEDS: IV NORMAL SALINE 500 ML BAG IV ONE (03:21)
[2025-02-23] MEDS: METOCLOPRAMIDE HCL 10 MG/2 ML VIAL IV ONE (03:21)
[2025-02-23] MEDS: DEXAMETHASONE SOD PHOSPHATE 4 MG INJ IV ONE (03:21)
[2025-02-23] MEDS: diphenhydrAMINE 50 MG/1 ML VIAL IV ONE (03:21)
[2025-02-23 03:22] VITALS: TEMP 98.2
[2025-02-23] MEDS: KETOROLAC TROMETHAMINE 15 MG INJ IVP ONE (03:22)
[2025-02-23] MEDS: ACETAMINOPHEN 500 MG TABLET PO ONE (03:22)
[2025-02-23 03:23] LABS: ALBUMIN 3.6 g/dL (3.4-5.0); BILIRUBIN,TOTAL 0.3 mg/dL (0.2-1.0); MAGNESIUM 2.1 mg/dL (1.8-2.4); TOTAL PROTEIN, SERUM 8.5 g/dL (6.4-8.2)
[2025-02-23 03:24] LABS: C-REACTIVE PROTEIN 2.16 mg/dL (0.00-0.30)
[2025-02-23 04:03] LABS: BACTERIA,URINE FEW /HPF (NONE SEEN); MUCUS,URINE MODERATE /LPF (0-FEW); RBC,URINE 0-3 /HPF (0-3); SQUAMOUS EPITHELIAL CELL,UR FEW /HPF (NONE SEEN); WBC,URINE 0-3 /HPF (0-3)
[2025-02-23 04:36] VITALS: BP 127/68; O2SAT 100
== END 2025-02-23 04:37 | disposition home or self-care (01) ==
LOC: ER 22:43
DX: G43.909 Migraine, unspecified, not intractable, without status migrainosus (principal); B34.9 Viral infection, unspecified; F41.9 Anxiety disorder, unspecified; G89.4 Chronic pain syndrome; F32.A Depression, unspecified; Z88.7 Allergy status to serum and vaccine; Z86.69 Personal history of other diseases of the nervous system and sense organs; Z87.19 Personal history of other diseases of the digestive system; Z60.2 Problems related to living alone
CPT/HCPCS: 99284; 96374; 96375; 71045; 96361; 80053; 81001; 84703; 83735; 85025; 86140; 36415; J1885; J1100; J2765; J7040; A4606; A4663; J1200

== ENCOUNTER 2025-09-22 12:09 | Emergency (ER) | payer MEDICAID ==
[~2025-09-22] VITALS: Ht 157.5 cm; Wt 55.8 kg
[2025-09-22 12:14] VITALS: BP 113/73
[2025-09-22] MEDS ORDERED: TRAM50TA2 PO (12:43)
[2025-09-22 13:12] VITALS: BP 113/73; TEMP 98.2; O2SAT 99
== END 2025-09-22 13:13 | disposition home or self-care (01) ==
LOC: ER 12:09
DX: G89.29 Other chronic pain (principal); M54.2 Cervicalgia; F41.9 Anxiety disorder, unspecified; M47.9 Spondylosis, unspecified; M19.90 Unspecified osteoarthritis, unspecified site; G43.909 Migraine, unspecified, not intractable, without status migrainosus; Z59.71 Insufficient health insurance coverage; Z86.19 Personal history of other infectious and parasitic diseases; Z88.7 Allergy status to serum and vaccine
CPT/HCPCS: A4606; A4663